=== PATIENT | male | born 1965 | race Caucasian/White ===

== ENCOUNTER 2016-06-22 10:12 | Emergency (ER) ==
[2016-06-22 10:23] VITALS: BP 108/62; TEMP 97.4; BMI 33.6
--- NOTE | 2016-06-22 10:35 | ED.PDOC ---
General ED Provider: Dr. KRISTEN RAGSDALE JR Chief Complaint: Shortness of Air Stated Complaint: SOA. Cofusion. Weakness. Fell x 3 last noc per . Pain both knees. Hx smoking 1 pack cigarettes dly x 30 yrs. [ End ] 97.4 110 28 99% 108/62 9/10 Time Seen by Physician: 10:35 Information Source: Patient, Family Exam Limitations: No limitations Primary Care Provider: GRACIELA NIXON Nursing and Triage Documentation Reviewed and Agree: No Review of Systems - Review Of Systems Constitutional: Reports: Malaise, Weakness Eyes: Reports: No symptoms Ears, Nose, Mouth, Throat: Reports: No symptoms Respiratory: Reports: Short of air Cardiac: Reports: Lightheadedness GI: Reports: Abdomen distended : Reports: Incontinence Musculoskeletal: Reports: No symptoms Skin: Reports: No symptoms Neurological: Reports: Anxiety, Depressed, Cognitive dysfunction, Weakness Endocrine: Reports: No symptoms Hematologic/Lymphatic: Reports: No symptoms All Other Systems: Other Past Medical History - Past Medical History Endocrine: Reports: Dyslipidemia Cardiovascular: Reports: Hypertension Respiratory: Reports: None Hematological: Reports: None Gastrointestinal: Reports: None Genitourinary: Reports: None Neuro/Psych: Reports: Anxiety, Depression Musculoskeletal: Reports: None Cancer: Reports: None, Other (note adrenal mass) - Surgical History General Surgical History: Reports: Orthopedic ( Internal fixation left tib/fib ) , Other (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)no known abdominal hardware) - Family History Family History: Reports: Unknown - Social History Smoking Status: Current every day smoker, Heavy tobacco smoker Hx Substance Use: No Alcohol Screening: Heavy (12 pack of beer a day (was unwell yesterday only able to drink 4 cans)) Physical Exam - Physical Exam Appearance: Ill-appearing, Obese Ill-appearing: Moderate Pain Distress: Mild Eyes: BINTA, EOMI, Conjunctiva inflammed (scant left discharge does not appear infected) ENT: Ears normal (superficial abrasions), Nose normal, Oropharynx normal Neck: Supple Respiratory: Airway patent, Breath sounds equal, Breath sounds diminished, Wheezes Cardiovascular: RRR, Pulses normal, No rub, No murmur GI/: Soft (markedly protuberant), Bowel sounds hypoactive Musculoskeletal: Normal strength, ROM intact, No edema, No calf tenderness Skin: Warm, Dry, Normal color Neurological: Motor intact, Reflexes intact, Cranial nerves intact (as testable) , Oriented, Alert to verbal Interpretation - EKG Interpretation Time of EKG #1: 10:45 Rate: Normal Rhythm: Sinus Ectopy: None [place]: [place] ST Segment: Normal Physician Notification - Case Discussed Physician Notified: lul [email or web address], dutch(no beds) Klever)- hospitalist in a code Time of Notification: 12:40 (dr SANDOVAL ACCEPTS AT 1345) Critical Care Note - Critical Care Note Total Time (mins): 30 Course - Course Hematology/Chemistry: 06/22/16 10:55 06/22/16 10:55 Orders, Labs, Meds: Lab Review 06/22/16 10:55 WBC 20.98 H RBC 4.62 L Hgb 15.2 Hct 38.5 L MCV 83.3 MCH 32.9 H MCHC 39.5 H RDW Coeff of Robert 11.9 Plt Count 107 L Neutrophils % (Manual) 66.0 Band Neutrophils % 28.0 H Lymphocytes % (Manual) 2.0 L Monocytes % (Manual) 4.0 PT 12.6 H INR 1.22 APTT 29.9 D-Dimer 2.13 Puncture Site R rad O2 Saturation 98.0 ABG pH 7.464 H ABG pCO2 18.7 L ABG pO2 93.0 ABG HCO3 13.4 L ABG Total CO2 14 L ABG Base Excess -10 L Alexi Test + FiO2 % 21.0 Sodium 104 L* Potassium 3.2 L Chloride 73 L* Carbon Dioxide 14 L Anion Gap 20.2 BUN 7 Creatinine 1.21 H Estimated GFR (MDRD) 63.00 BUN/Creatinine Ratio 5.78 Glucose 136 H Lactic Acid 62.2 H Calcium 7.8 L Total Bilirubin 9.67 H AST 587 H ALT 319 H Alkaline Phosphatase 326 H Ammonia 81 H Total Creatine Kinase 1323 CK-MB (CK-2) 28.2 H* CK-MB (CK-2) % 2.82086 Troponin I 0.0300 B-Natriuretic Peptide 182 H Total Protein 5.8 L Albumin 2.8 L Globulin 3.0 Albumin/Globulin Ratio 0.93 Amylase 240 H Lipase 1060 H* Procalcitonin 2.35 Orders Category Date Time Status ABG DRAW REQUEST Stat CARDIO 06/22/16 10:50 Completed EKG-(ED ONLY) Stat CARDIO 06/22/16 10:36 Completed ACCUCHECK (ED) [ED ACCUCHECK ASSESSMENT] .ONCE EMERGENCY 06/22/16 10:58 Active ED UPPER STITCHER APPLIED .ONCE EMERGENCY 06/22/16 10:36 Active ED IV/MEDIPORT/POWERPORT .ONCE EMERGENCY 06/22/16 10:36 Active O2 [ED APPLY O2] .ONCE EMERGENCY 06/22/16 10:53 Active ABG Stat LAB 06/22/16 10:55 Completed AMMONIA Stat LAB 06/22/16 10:55 Completed AMYLASE Stat LAB 06/22/16 10:55 Completed B-TYPE NATRIURETIC PEPTIDE Stat LAB 06/22/16 10:55 Completed BLOOD CULTURE Stat LAB 06/22/16 10:55 Received CBC W/ AUTO DIFF Stat LAB 06/22/16 10:55 Completed COMPREHENSIVE METABOLIC PANEL Stat LAB 06/22/16 10:55 Completed CREATINE KINASE Stat LAB 06/22/16 10:55 Completed D-DIMER Stat LAB 06/22/16 10:55 Completed LACTIC ACID Stat LAB 06/22/16 10:55 Completed LIPASE Stat LAB 06/22/16 10:55 Completed MANUAL DIFFERENTIAL Stat LAB 06/22/16 10:55 Completed PARTIAL THROMBOPLASTIN TIME Stat LAB 06/22/16 10:55 Completed PROCALCITONIN Stat LAB 06/22/16 10:55 Completed PT WITH INR Stat LAB 06/22/16 10:55 Completed TROPONIN I Stat LAB 06/22/16 10:55 Completed 0.9 % Sodium Chloride [Saline Flush] MEDS 06/22/16 10:36 Active 1 syr IVF PRN PRN Lactulose MEDS 06/22/16 12:43 Discontinued 40 gm PO ONCE STA Sodium Chloride 0.9% [Sodium Chloride] 1,000 ml MEDS 06/22/16 10:36 Active IV 100 mls/hr CT ABDOMEN/PELVIS WO CONTRAST Stat RADS 06/22/16 10:[address] CHEST W/O CONTRAST Stat RADS 06/22/16 10:[address] HEAD W/O CONTRAST Stat RADS 06/22/16 10:46 Completed Medications Generic Name Dose Route Start Last Admin Trade Name Freq PRN Reason Stop Dose Admin Sodium Chloride 1,000 mls @ 100 mls/hr 06/22/16 10:36 06/22/16 11:54 Sodium Chloride IV 06/22/16 20:35 100 mls/hr .Q10H STA Administration Sodium Chloride 1 syr 06/22/16 10:36 Saline Flush IVF PRN PRN To flush IV Discontinued Medications Generic Name Dose Route Start Last Admin Trade Name Anurag PRN Reason Stop Dose Admin Lactulose 40 gm 06/22/16 12:43 06/22/16 13:06 Lactulose PO 06/22/16 12:44 40 gm ONCE STA Administration Vital Signs: Temp Pulse Resp BP Pulse Ox 06/22/16 10:13 97.4 F L 110 H 28 H 108/62 99 Departure - Departure Time of Disposition: 13:04 Disposition: TSF SHORT-TRM HOSP Discharge Problem: Hepatic failure due to alcoholism, Pancreatitis, alcoholic, acute, Hyponatremia Condition: Serious Pt referred to PMD for follow-up: No Allergies/Adverse Reactions: Allergies No Known Allergies Allergy (Unverified 06/22/16 10:24) Home Medications: Ambulatory Orders Budesonide/Formoterol Fumarate [Symbicort 160-4.5 Mcg Inhaler] 1 puff IH DIRECTED PRN 06/22/16 Citalopram Hydrobromide [Citalopram HBr] 20 mg PO BEDTIME 06/22/16 Lisinopril [Zestril] 40 mg PO BEDTIME 06/22/16 Lovastatin [Mevacor] 20 mg PO BEDTIME 06/22/16 Olanzapine [Zyprexa] 10 mg PO BEDTIME 06/22/16
[2016-06-22] MEDS ORDERED: SODIUM CHLORIDE 1,000 ML IV STA (10:36)
[2016-06-22 10:56] LABS: ABG BASE EXCESS -10 (-2.0-2.0); ABG HCO3 13.4 (22.0-26.0); ABG PCO2 18.7 mmHg (35-45); ABG PH 7.464 (7.35-7.45); ABG TCO2 14 (22.0-28.0)
[2016-06-22 11:14] LABS: HEMATOCRIT 38.5 % (42.0-52.0); HEMOGLOBIN 15.2 g/dl (14.0-18.0); MEAN CORPUSCULAR HEMOGLOBIN 32.9 pg (27.0-31.0); MEAN CORPUSCULAR HGB CONC 39.5 (31.8-35.4); MEAN CORPUSCULAR VOLUME 83.3 fl (80.0-94.0); PLATELET COUNT 107 10^3/uL (140-440); RED BLOOD COUNT 4.62 10^6/ul (4.70-6.10); WHITE BLOOD COUNT 20.98 K/ul (4.2-10.2)
[2016-06-22 11:31] LABS: ANISOCYTOSIS NOT PRESENT (NOT PRESENT)
[2016-06-22 11:39] LABS: PARTIAL THROMBOPLASTIN TIME 29.9 SEC (23.9-40.0); PROTHROMBIN TIME 12.6 SEC (9.3-11.0)
--- NOTE | 2016-06-22 11:58 | CT ---
EXAM: CT Head HISTORY: Confusion, three falls, incontinence COMPARISON: 09/22/2009 TECHNIQUE: CT head performed without contrast FINDINGS: There is no mass effect, midline shift, or intracranial hemmorhage. Gallardo white different iation is preserved. There is no extra-axial collection. The ventricles, sulci, and basal cisterns are patent and symmetric. There is chronic ischemic disease of the white matter and cerebral volum e loss. There is no depressed calvarial fracture. The mastoid air cells are clear. The visualized paranasal sinuses are clear. There are intracranial atherosclerotic calcifications. IMPRESSION: 1. No acute intracranial abnormality. 2. Chronic ischemic disease of the white matter and cerebral volume loss.
--- NOTE | 2016-06-22 12:01 | CT ---
EXAM: CT abdomen pelvis without contrast HISTORY: Abdominal swelling, confusion and incontinence COMPARISON: Same day CT head and chest with CT abdomen 09/22/2009 TECHNIQUE: Serial axial images of the abdomen pelvis were performed from the lung bases through the inferior pelvis without contrast. These were viewed in multiple planes. FINDINGS: The lungs are clear. Evaluation is very limited due to patient motion and artifact from metallic hardware in the left abd omen. Evaluation is limited due to lack of contrast. There is diffuse low attenuation throughout t he liver consistent with hepatic steatosis. The gallbladder demonstrates mild increased density mat erial with no definitive pericholecystic fluid. The right adrenal gland and right kidney are normal on this limited evaluation. Spleen is unremarkable. There is stranding and fluid involving the mi dabdomen mesentery and extending into the retroperitoneum bilaterally, most pronounced on the left. This hazy ground-glass stranding is surrounding the pancreas. There are surgical clips in the left upper abdomen but are limiting this examination. The stomach is unremarkable and nondistended with minimal adjacent ground-glass in the mesentery. S mall bowel in the abdomen pelvis is nonobstructive. There is no layering free fluid in the pelvis. There is haziness in the mid mesentery. There is no definitive evidence of obstruction. Urinary b ladder is distended. Prostate is unremarkable. The osseous structures are unremarkable. IMPRESSION: 1. Nonspecific stranding in the abdominal mesentery and within the retroperitoneum surrounding the left kidney on this evaluation limited due to significant artifact from the adjacent hardware and mo tion. Findings may represent pancreatitis and correlation with pancreatic enzymes is recommended. T his fluid however is nonspecific and may represent an etiology from the adjacent bowel or left kidne y as these are poorly visualized due to metallic artifact. 2. Diffuse hepatic steatosis.
--- NOTE | 2016-06-22 12:02 | CT ---
Examination: Helical noncontrasted CT examination of the chest. Comparison: 09/22/2009. Reason for study: Short of air, confused, abdominal distension. FINDINGS: Evaluation is somewhat limited by lack of intravenous contrast administration. There are subtle areas of ground-glass seen within the right upper and right middle lobe best seen on axial i mages . 4 mm ground-glass nodule is seen in the left upper lobe on axial image number 24. No pneumothorax, pleural effusion, or focal consolidation. The heart is normal in size. There is a therosclerotic disease of the aorta and coronary vasculature. Please see the CT examination of the abdomen pelvis performed on the same day for imaging findings b elow the level of the diaphragm. Postsurgical changes are seen in the left upper quadrant with infl ammatory change. The liver is lower in density than the spleen. No osteoblastic or osteolytic lesio ns. Impression: 1. Subtle ground-glass opacities in the right upper and right middle lobes likely inflammatory or e carlin infectious etiology. 2. 4 mm ground-glass nodule in the left upper lobe. 3. Please see the CT examination of the abdomen pelvis performed on the same day for evaluation of the abdomen and pelvis.
[2016-06-22 12:11] LABS: ALBUMIN 2.8 g/dL (3.4-5.0); ALBUMIN/GLOBULIN RATIO 0.93; ANION GAP 20.2; BILIRUBIN,TOTAL 9.67 mg/dL (0.00-1.20); BUN/CREATININE RATIO 5.78; CALCIUM 7.8 mg/dL (8.2-10.2); CREATININE 1.21 mg/dL (0.60-1.10); POTASSIUM 3.2 mmol/L (3.5-5.1); TOTAL PROTEIN 5.8 g/dL (6.4-8.2); TROPONIN I 0.03 ng/ml (0.0000-0.4000)
[2016-06-22 12:14] LABS: CREATINE KINASE MB 28.2 ng/ml (0.0-3.6)
[2016-06-22] MEDS ORDERED: LACTULOSE PO STA (12:43)
[2016-06-22 13:14] LABS: AMYLASE 240 U/L (25-115)
[2016-06-22 13:16] LABS: LIPASE 1060 U/L (8-78)
[2016-06-22] MEDS ORDERED: ROCEPHIN 1 GM in SODIUM CHLORIDE 100 ML IV STA (14:04)
[2016-06-22 14:06] LABS: OCCULT BLOOD INTERNAL QC 1 INTERNAL QC VALID; OCCULT BLOOD SAMPLE 1 POSITIVE (NEGATIVE)
[2016-06-22] MEDS ORDERED: ROCEPHIN ONE (14:06)
[2016-06-22 14:14] LABS: H. PYLORI STOOL ANTIGEN NEGATIVE; H.PYLORI STOOL AG INTERNAL QC INTERNAL QC VALID
[2016-06-22 15:21] LABS: OCCULT BLOOD INTERNAL QC 2 INTERNAL QC VALID; OCCULT BLOOD INTERNAL QC 3 INTERNAL QC VALID; OCCULT BLOOD SAMPLE 2 NO SPECIMEN RECEIVED (NEGATIVE); OCCULT BLOOD SAMPLE 3 NO SPECIMEN RECEIVED (NEGATIVE)
== END 2016-06-22 14:30 | disposition short-term general hospital (02) ==
LOC: ED 10:12
DX: K70.40 Alcoholic hepatic failure without coma (principal); F10.10 Alcohol abuse, uncomplicated; K85.20 Alcohol induced acute pancreatitis without necrosis or infection; E87.1 Hypo-osmolality and hyponatremia; R29.6 Repeated falls; M25.562 Pain in left knee; M25.561 Pain in right knee; R53.1 Weakness; R06.02 Shortness of breath; R41.0 Disorientation, unspecified; R42 Dizziness and giddiness; E78.5 Hyperlipidemia, unspecified; I10 Essential (primary) hypertension; F17.210 Nicotine dependence, cigarettes, uncomplicated; Z79.899 Other long term (current) drug therapy; W19.XXXA Unspecified fall, initial encounter
CPT/HCPCS: 36415; 80053; 82140; 82150; 82272; 82550; 82553; 82803; 82962; 83605; 83690; 83880; 84145; 84484; 85007; 85025; 85379; 85610; 85730; 87015; 87040; 87045; 87338; 87899; 93005; 93010; 96361; 96365; 99284; 99285

== ENCOUNTER 2016-06-22 14:29 | Outpatient (CLI) ==
[2016-06-22 10:23] VITALS: BMI 33.6
== END 2016-06-22 14:30 | disposition home or self-care (01) ==
LOC: AMBL 14:29
PROVIDERS: ATTEND Emergency Medicine
DX: R41.82 Altered mental status, unspecified (principal); K72.90 Hepatic failure, unspecified without coma; R29.6 Repeated falls; R00.0 Tachycardia, unspecified; R06.02 Shortness of breath

== ENCOUNTER 2016-07-31 12:48 | Emergency (ER) ==
[2016-07-31 13:11] VITALS: BP 100/68; TEMP 99.2; BMI 31.8
--- NOTE | 2016-07-31 15:10 | US ---
EXAM: ULTRASOUND LOWER EXTREMITY VENOUS DOPPLER EXAM HISTORY: Leg pain. FINDINGS: Right lower extremity venous Doppler exam. Real time guthrie-scale, Doppler spectral analysi s and color-flow Doppler imaging performed. The veins targeted for evaluation include the common fe moral, greater saphenous, profundus, femoral, popliteal, peroneal, anterior tibial and posterior tib ial. The evaluated veins demonstrated normal spontaneous flow and compression without evidence of thrombosis. No valvular reflux. IMPRESSION: No venous thrombosis identified within the areas evaluated.
--- NOTE | 2016-07-31 15:10 | DI ---
Examination: Three radiographic images of the right ankle. Comparison: Right foot radiographs performed on the same day. Reason for study: Pain. FINDINGS: No acute fracture or dislocation. The talar dome is intact. There is no widening of the medial clear space. No unexpected osseous soft tissue densities. Impression: No acute fracture or dislocation in the right ankle.
--- NOTE | 2016-07-31 15:13 | DI ---
Examination: Three images of the right foot. Comparison: Right ankle radiographs performed on the same day. Reason for study: Pain. FINDINGS: No acute fracture or dislocation. The joint spaces are well maintained. There is no obv ious malalignment. There is a fragmented os peroneum along the a plantar aspect of the cuboid. Impression: 1. No acute fracture or dislocation. 2. Fragmented os peritoneum. Recommend correlation with site of patient's pain to rule out painful os peroneum syndrome.
--- NOTE | 2016-07-31 15:52 | ED.PDOC ---
General ED Provider: Dr. NICHOLAS MARSHALL Chief Complaint: Non-specific Complaint Stated Complaint: right leg pain Time Seen by Physician: 13:00 Mode of Arrival: Walk-In Information Source: Patient Exam Limitations: No limitations Primary Care Provider: GRACIELA NIXON Nursing and Triage Documentation Reviewed and Agree: Yes Musculoskeletal Complaint Exam - Lower Extremity Complaint/Exam Location of Pain: Reports: Right, Leg Mechanism of Injury: Reports: No known trauma Onset/Duration: 1 week Symptoms Are: Still present Initial Severity: Mild Current Severity: Mild Character: Reports: Aching Alleviating: Reports: Rest, Position Aggravating: Reports: None Able to Bear Weight: Yes Associated Signs and Symptoms: Denies: Swelling, Redness, Bruising, Fever, Weakness, Numbness, Tingling Related History: Reports: Similar episode DVT Risk Factors: Reports: None Septic Arthritis Risk Factors: Reports: None Related Surgical History: Reports: None Differential Diagnoses: DVT, Strain, Sprain Review of Systems - Review Of Systems Constitutional: Reports: No symptoms Eyes: Reports: No symptoms Ears, Nose, Mouth, Throat: Reports: No symptoms Respiratory: Reports: No symptoms Cardiac: Reports: No symptoms GI: Reports: No symptoms : Reports: No symptoms Musculoskeletal: Reports: Joint pain Skin: Reports: No symptoms Neurological: Reports: No symptoms Endocrine: Reports: No symptoms Hematologic/Lymphatic: Reports: No symptoms All Other Systems: Reviewed and Negative Past Medical History - Past Medical History Endocrine: Reports: Dyslipidemia Cardiovascular: Reports: Hypertension Respiratory: Reports: None Hematological: Reports: None Gastrointestinal: Reports: None Genitourinary: Reports: None Neuro/Psych: Reports: Anxiety, Depression Musculoskeletal: Reports: None Cancer: Reports: None, Other (note adrenal mass) - Surgical History General Surgical History: Reports: Orthopedic ( Internal fixation left tib/fib ) , Other (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)no known abdominal hardware) - Family History Family History: Reports: Unknown - Social History Smoking Status: Current every day smoker, Light tobacco smoker Hx Substance Use: No Alcohol Screening: None Physical Exam - Physical Exam Appearance: Well-appearing, No pain distress, Well-nourished Eyes: BINTA, EOMI, Conjunctiva clear ENT: Ears normal, Nose normal, Oropharynx normal Respiratory: Airway patent, Breath sounds clear, Breath sounds equal, Respirations nonlabored Cardiovascular: RRR, Pulses normal, No rub, No murmur GI/: Soft, Nontender, No masses, Bowel sounds normal, No Organomegaly Musculoskeletal: Normal strength, ROM intact, No edema, No calf tenderness Skin: Warm, Dry, Normal color Neurological: Sensation intact, Motor intact, Reflexes intact, Cranial nerves intact, Alert, Oriented Psychiatric: Affect appropriate, Mood appropriate Critical Care Note - Critical Care Note Total Time (mins): 0 Course - Course Orders, Labs, Meds: Orders Category Date Time Status ANKLE, RIGHT MIN 3 VIEWS Stat RADS 07/31/16 14:34 Completed FOOT, RIGHT 3 VIEWS Stat RADS 07/31/16 14:34 Completed U/S VENOUS SCAN RT. LEG Stat RADS 07/31/16 14:35 Completed Vital Signs: Temp Pulse Resp BP Pulse Ox 07/31/16 12:50 99.2 F 98 H 20 100/68 96 Departure - Departure Time of Disposition: 15:51 Disposition: HOME SELF-CARE Discharge Problem: Leg pain, right Instructions: Leg Pain (ED), Arthralgia (ED) Condition: Good Pt referred to PMD for follow-up: No Additional Instructions: Please call your Family Physician as soon as possible to schedule a follow-up appointment. Allergies/Adverse Reactions: Allergies No Known Allergies Allergy (Verified 07/31/16 13:07) Home Medications: Ambulatory Orders Budesonide/Formoterol Fumarate [Symbicort 160-4.5 Mcg Inhaler] 1 puff IH DIRECTED PRN 06/22/16 Citalopram Hydrobromide [Citalopram HBr] 20 mg PO BEDTIME 06/22/16 Lisinopril [Zestril] 40 mg PO BEDTIME 06/22/16 Lovastatin [Mevacor] 20 mg PO BEDTIME 06/22/16 Olanzapine [Zyprexa] 10 mg PO BEDTIME 06/22/16
== END 2016-07-31 16:00 | disposition home or self-care (01) ==
LOC: ED 12:48
DX: M79.604 Pain in right leg (principal); M25.50 Pain in unspecified joint; F17.210 Nicotine dependence, cigarettes, uncomplicated; Z79.899 Other long term (current) drug therapy
CPT/HCPCS: 99283

== ENCOUNTER 2016-08-10 13:05 | Outpatient (CLI) ==
--- NOTE | 2016-08-10 13:51 | DI ---
EXAM: Acute abdominal series HISTORY: Constipation. COMPARISON: CT abdomen 07/23/2016 and 06/22/2016 FINDINGS: Surgical clips in the upper abdomen are present. There are air-fluid levels in the small bowel on the right decubitus view. There are air-fluid levels on the upright view of the abdomen. There is no pneumatosis. There is no portal venous gas or free air beneath the diaphragm. IMPRESSION: Multiple air-fluid levels in the abdomen and pelvis may represent small bowel obstructi on. Previous small bowel obstruction was identified on prior CT.
== END 2016-08-10 13:06 | disposition home or self-care (01) ==
LOC: RAD 13:05
PROVIDERS: ATTEND Physician Assistant
DX: K59.09 Other constipation (principal)

== ENCOUNTER 2017-12-25 14:17 | Emergency (ER) ==
[2017-12-25] MEDS ORDERED: DUONEB NEB STA ×4 (14:22→18:18)
[2017-12-25 14:23] VITALS: TEMP 98.6; BMI 25.0
--- NOTE | 2017-12-25 14:30 | ED.PDOC ---
General ED Provider: Dr. CYNTHIA WATSON Chief Complaint: Weakness Stated Complaint: Patient is brought to the Er with weakness that started yesterday got worse today. Denies any focal deficites only generalzed weakness. He was recently in the hospital. Time Seen by Physician: 14:25 Mode of Arrival: Ambulance Information Source: Patient, Family Exam Limitations: No limitations Primary Care Provider: GRACIELA NIXON Nursing and Triage Documentation Reviewed and Agree: Yes Does patient meet sepsis criteria?: No System Inflammatory Response Syndrome: Not Applicable Sepsis Protocol: For patient's 13 years and over: Temp is 96.8 and below OR 101 and greater Pulse >90 BPM Resp >20/minute Acutely Altered Mental Status Are patient's symptoms suggestive of a new infection, such as: -Pneumonia -Skin, Soft Tissue -Endocarditis -UTI -Bone, Joint Infection -Implantable Device -Acute Abdominal Infection -Wound Infection -Meningitis -Blood Stream Catheter Infection -Unknown Miscellaneous Complaint Exam - Complex/Multi-System Complaint/Exam Onset/Duration: 1 week Symptoms Are: Still present Initial Severity: Moderate Current Severity: Severe Location of Pain: Abdomen Associated Signs and Symptoms: Reports: Decreased responsiveness, Weakness, Short of air, Cough, Abdominal pain, Decreased oral intake Respiratory Distress: Moderate JVD Present: Yes Tachypnea Present: Yes Stridor Present: No Abdominal Findings: Present: Distention. Absent: Rebound tenderness, Pulsatile mass Glascow Coma Scale (see protocol): 15 Focal Weakness: Present: None Focal Sensory Loss: Present: None Gait: Unable Review of Systems - Review Of Systems Constitutional: Reports: Loss of appetite Ears, Nose, Mouth, Throat: Reports: No symptoms Respiratory: Reports: Cough, Wheezing (rhochi) Cardiac: Reports: No symptoms GI: Reports: Abdomen distended, Abdominal pain, Poor appetite : Reports: No symptoms Musculoskeletal: Reports: No symptoms Skin: Reports: No symptoms Neurological: Reports: Anxiety All Other Systems: Other (Limited due to Metal state) Past Medical History - Past Medical History Endocrine: Reports: Dyslipidemia Cardiovascular: Reports: Hypertension Respiratory: Reports: None Hematological: Reports: None Gastrointestinal: Reports: None Genitourinary: Reports: None Neuro/Psych: Reports: Anxiety, Depression Musculoskeletal: Reports: None Cancer: Reports: None, Other (note adrenal mass) - Surgical History General Surgical History: Reports: Orthopedic ( Internal fixation left tib/fib ) , Other (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)no known abdominal hardware) - Family History Family History: Reports: Unknown - Social History Smoking Status: Current every day smoker Hx Substance Use: No Alcohol Screening: Heavy - Immunizations Tetanus Shot up to Date: Yes Physical Exam - Physical Exam Appearance: Ill-appearing Eyes: BINTA, EOMI (Jaundiced ) ENT: Dry mucosa Neck: Supple Respiratory: Rhonchi (Bilatearal ) GI/: Soft, Tender (mild diffuse ), Hepatomegaly Skin: Warm, Dry Neurological: Motor intact, Alert to verbal, Alert to pain Psychiatric: Anxious Interpretation - Radiology Interpretation Radiology Interpretation By: Radiologist Radiology Results: Negative Exam Interpreted: CT Scan (Head ) Radiology Interpretation By: Radiologist Radiology Results: Positive (Possible small bowel obstruction. Ascities.) Exam Interpreted: CT Scan Physician Notification - Case Discussed Physician Notified: Dr Blue Time of Notification: 16:00 Physician Notified: Dr. Lazar Time of Notification: 17:42 (Accepted after Negative CT Head ) Critical Care Note - Critical Care Note Total Time (mins): 65 Course - Course Hematology/Chemistry: 12/25/17 15:33 12/25/17 15:33 Orders, Labs, Meds: Lab Review 12/25/17 12/25/17 12/25/17 15:33 15:33 15:33 WBC 7.11 RBC 4.20 L Hgb 13.0 L Hct 34.8 L MCV 82.9 MCH 31.0 MCHC 37.4 H RDW Coeff of Robert 16.0 H Plt Count 83 L Immature Gran % (Auto) 0.4 Neut % (Auto) 80.1 Lymph % (Auto) 15.0 [place] % (Auto) 3.7 Eos % (Auto) 0.1 Baso % (Auto) 0.7 Immature Gran # (Auto) 0.0 Neut # (Auto) 5.7 Lymph # (Auto) 1.1 [place] # (Auto) 0.3 L Eos # (Auto) 0.0 Baso # (Auto) 0.1 Puncture Site O2 Saturation ABG pH ABG pCO2 ABG pO2 ABG HCO3 ABG Total CO2 ABG Base Excess Alexi Test FiO2 % Sodium 123 L Potassium 3.5 Chloride 94 L Carbon Dioxide 18 L Anion Gap 14.5 BUN 13 Creatinine 0.77 Estimated GFR (MDRD) 105.00 BUN/Creatinine Ratio 16.88 Glucose 72 Lactic Acid Calcium 7.5 L Total Bilirubin 2.2 H AST 135 H ALT 135 H Alkaline Phosphatase 250 H Total Protein 4.2 L Albumin 1.2 L Globulin 3.0 Albumin/Globulin Ratio 0.40 Procalcitonin 1.52 12/25/17 12/25/17 15:35 15:35 WBC RBC Hgb Hct MCV MCH MCHC RDW Coeff of Robert Plt Count Immature Gran % (Auto) Neut % (Auto) Lymph % (Auto) [place] % (Auto) Eos % (Auto) Baso % (Auto) Immature Gran # (Auto) Neut # (Auto) Lymph # (Auto) [place] # (Auto) Eos # (Auto) Baso # (Auto) Puncture Site Lradial O2 Saturation 95.0 ABG pH 7.524 H* ABG pCO2 21.8 L ABG pO2 64.0 L ABG HCO3 17.9 L ABG Total CO2 19 L ABG Base Excess -5 L Alexi Test + FiO2 % 21.0 Sodium Potassium Chloride Carbon Dioxide Anion Gap BUN Creatinine Estimated GFR (MDRD) BUN/Creatinine Ratio Glucose Lactic Acid 29.8 H Calcium Total Bilirubin AST ALT Alkaline Phosphatase Total Protein Albumin Globulin Albumin/Globulin Ratio Procalcitonin Orders Category Date Time Status ABG DRAW REQUEST Routine CARDIO 12/25/17 14:24 Completed EKG-(ED ONLY) Stat CARDIO 12/25/17 16:00 Completed NEBULIZER TREATMENT Stat CARDIO 12/25/17 14:24 Completed NEBULIZER TREATMENT Stat CARDIO 12/25/17 18:09 Completed ED APPLY O2 .ONCE EMERGENCY 12/25/17 14:18 Active ED CPR INSTRUCTOR APPLIED .ONCE EMERGENCY 12/25/17 14:18 Active ED VITAL SIGNS Q1HR EMERGENCY 12/25/17 14:18 Active ABG Stat LAB 12/25/17 15:35 Completed BLOOD CULTURE (ED ONLY) Stat LAB 12/25/17 15:33 Received CBC W/ AUTO DIFF Stat LAB 12/25/17 15:33 Completed COMPREHENSIVE METABOLIC PANEL Stat LAB 12/25/17 15:33 Completed LACTIC ACID Stat LAB 12/25/17 15:35 Completed PROCALCITONIN Stat LAB 12/25/17 15:33 Completed Ipratropium/Albuterol Neb [Duoneb] MEDS 12/25/17 14:22 Discontinued 1 vial NEB ONCE STA Ipratropium/Albuterol Neb [Duoneb] MEDS 12/25/17 16:01 Discontinued 1 vial NEB ONCE STA Ipratropium/Albuterol Neb [Duoneb] MEDS 12/25/17 18:09 Discontinued 1 vial NEB ONCE STA Ipratropium/Albuterol Neb [Duoneb] MEDS 12/25/17 18:18 Discontinued 1 vial NEB ONCE STA Piperacillin Sodium/Tazobactam [Zosyn 3.375 gm] 3.375 MEDS 12/25/17 15:53 Discontinued gm 0.9 % Sodium Chloride [Sodium Chloride] 50 ml IV ONCE Sodium Chloride 0.9% [Sodium Chloride] 1,000 ml MEDS 12/25/17 18:05 Active IV 75 mls/hr CHEST, 1V AP ONLY Stat RADS 12/25/17 14:[address] ABDOMEN/PELVIS WO CONTRAST Stat RADS 12/25/17 17:[address] HEAD W/O CONTRAST Stat RADS 12/25/17 17:34 Completed Medications Generic Name Dose Route Start Last Admin Trade Name Freq PRN Reason Stop Dose Admin Sodium Chloride 1,000 mls @ 75 mls/hr 12/25/17 18:05 12/25/17 18:10 Sodium Chloride IV 12/26/17 07:24 75 mls/hr .[id number] STA Administration Discontinued Medications Generic Name Dose Route Start Last Admin Trade Name Freq PRN Reason Stop Dose Admin Albuterol/Ipratropium 1 vial 12/25/17 14:22 Duoneb NEB 12/25/17 14:23 ONCE STA Albuterol/Ipratropium 1 vial 12/25/17 16:01 12/25/17 16:02 Duoneb NEB 12/25/17 16:02 1 vial ONCE STA Administration Albuterol/Ipratropium 1 vial 12/25/17 18:09 Duoneb NEB 12/25/17 18:10 ONCE STA Albuterol/Ipratropium 1 vial 12/25/17 18:18 12/25/17 18:19 Duoneb NEB 12/25/17 18:19 1 vial ONCE STA Administration Piperacillin Sod/Tazobactam 50 mls @ 50 mls/hr 12/25/17 15:53 12/25/17 16:14 Sod 3.375 gm/ Sodium Chloride IV 12/25/17 16:52 50 mls/hr ONCE STA Administration Vital Signs: Temp Pulse Resp BP Pulse Ox 12/25/17 19:24 72 16 114/62 96 12/25/17 14:17 98.6 F 98 H 24 97/72 98 Departure - Departure Time of Disposition: 19:47 Disposition: TSF SHORT-TRM HOSP Discharge Problem: Hyponatremia Pneumonia Qualifiers: Pneumonia type: aspiration pneumonia Aspiration pneumonia type: unspecified Laterality: right Lung location: lower lobe of lung Qualified Code(s): J69.0 - Pneumonitis due to inhalation of food and vomit Liver failure Qualifiers: Liver failure chronicity: chronic Hepatic coma status: without hepatic coma Qualified Code(s): K72.10 - Chronic hepatic failure without coma Condition: Stable Pt referred to PMD for follow-up: No IPMP verified?: No Allergies/Adverse Reactions: Allergies No Known Allergies Allergy (Verified 07/31/16 13:07) Home Medications: Ambulatory Orders Olanzapine [Zyprexa] 10 mg PO BEDTIME 06/22/16 Sotalol HCl [Betapace] 80 mg PO BID 12/25/17 Pt. Stabilized Within Hospital's Capabilities/Transferred To: [facility]. Transfer Form Completed: Yes Disposition Discussed With: Patient, Family
--- NOTE | 2017-12-25 15:12 | DI ---
EXAM: Chest one view HISTORY: Cough COMPARISON: 07/24/2016 TECHNIQUE: Single view of the chest was performed FINDINGS: Right basilar consolidation. There is no pleural effusion or pneumothorax. The heart is normal in size. The mediastinal contour is normal. There are no acute abnormalities of the bones. C hronic fracture of the right mid clavicle. Surgical clips in the epigastric region. IMPRESSION: Right basilar consolidation, most consistent with pneumonia. Recommend radiographic fol low-up to resolution. Report faxed
--- NOTE | 2017-12-25 15:46 | ED.PDOC ---
Procedures - IV/Art Line Insertion Location: rt wrist Invasive Line/IV Catheter Gauge: 22 (blood draw for labs also) Number of Attempts: 1 Blood Return Positive: Yes Invasive Line/IV Flushes Without Difficulty: Yes Conscious Sedation - Pre-op Assessment Weight: 155 lb Surgical History: Dialysis - Medical History Past Medical History: Cancer, Seizures, A-FIb, COPD, Renal Failure, Depression, Liver, Other Other History: ETOH addiction - Physical Exam Heart Rate/Rhythm: Irregular Rhythm
--- NOTE | 2017-12-25 15:46 | ED.PDOC ---
Procedures - IV/Art Line Insertion Type of Line: Arterial Line Invasive Line/IV Catheter Gauge: 22 (art stick for abgs) Number of Attempts: 1 Blood Return Positive: Yes Invasive Line/IV Flushes Without Difficulty: Yes Conscious Sedation - Pre-op Assessment Weight: 155 lb Surgical History: Dialysis - Medical History Past Medical History: Cancer, Seizures, A-FIb, COPD, Renal Failure, Depression, Liver, Other Other History: ETOH addiction - Physical Exam Heart Rate/Rhythm: Irregular Rhythm
[2017-12-25] MEDS ORDERED: ZOSYN 3.375 GM 3.375 GM in SODIUM CHLORIDE 50 ML IV STA (15:53)
[2017-12-25] MEDS ORDERED: SODIUM CHLORIDE 1,000 ML IV STA (18:05)
--- NOTE | 2017-12-25 18:23 | CT ---
EXAM: CT head without contrast HISTORY: Altered mental status COMPARISON: CT head from 06/22/2016 TECHNIQUE: Helical axial CT of the head was performed without contrast. Coronal and sagittal reconstr uctions were performed. FINDINGS: There is no acute intracranial abnormality. There is no hemorrhage, mass, midline shift, abnormal ex tra-axial fluid collection, hydrocephalus or evolving ischemia. The guthrie-white matter junction is wel l maintained. There is moderate generalized atrophy. There is some mild chronic small vessel ischemi a in the white matter. Brain parenchyma, ventricles and sulci are otherwise normal. There are no acute calvarial lesions. Visualized orbits and globes are unremarkable. The mastoid ai r cells demonstrate no significant soft tissue opacification. The visualized paranasal sinuses show n o air-fluid levels. IMPRESSION: 1. No acute intracranial abnormality. 2. Stable senescent changes as described.
--- NOTE | 2017-12-25 18:35 | CT ---
EXAM: CT abdomen pelvis contrast TECHNIQUE: Helical axial CT of the abdomen and pelvis was performed contrast with coronal and sagit aly reconstructions. COMPARISON: CT abdomen pelvis from 07/23/2016. HISTORY: Abdominal pain FINDINGS: There are several dilated loops of small bowel seen in the left lower abdomen measuring up to 4.2 cm in diameter. The individual loops of bowel are somewhat obscured by moderate ascites. In addition th ere is quite a bit of perihepatic ascites. There is extreme fatty infiltration of the liver. There are no focal liver abnormalities identified. The spleen is somewhat small. The pancreas and adrenal glands are unremarkable. There is a small ef fusion in the left lung base with fairly extensive bibasilar areas of consolidation and/or edema more so in the right base. There are multiple surgical clips seen in the left upper quadrant. There are no suspicious renal masses or large cysts and no hydronephrosis. There are no kidney stones . Both ureters demonstrate normal course and caliber. There is no filling defect in the urinary blad nato. The appendix is not definitely seen. There are no inflamed colonic diverticula. There are no abdomin al wall hernias. There is advanced calcific atherosclerosis of the aorta. There are no acute osseous abnormalities. There is subcutaneous edema noted consistent with third spacing of fluid. IMPRESSION: 1. Extensive new ascites as described above with extreme fatty infiltration of the liver. Correlate for liver failure or cirrhosis. 2. Dilated loops of small bowel which may represent focal ileus or recurrent small bowel obstruction . No definite transition point is identified as the loops are quite obscured by the new ascites. 3. Bibasilar infiltrates versus edema will right greater than left with small left effusion. Report faxed
[2017-12-25 19:25] VITALS: BP 114/62
== END 2017-12-25 19:35 | disposition short-term general hospital (02) ==
LOC: ED 14:17
DX: E87.1 Hypo-osmolality and hyponatremia (principal); J69.0 Pneumonitis due to inhalation of food and vomit; K72.10 Chronic hepatic failure without coma; R53.1 Weakness; R06.02 Shortness of breath; F17.210 Nicotine dependence, cigarettes, uncomplicated
CPT/HCPCS: 36415; 80053; 82803; 83605; 84145; 85025; 87040; 93005; 93010; 94640; 96361; 96365; 99285

== ENCOUNTER 2017-12-25 19:59 | Outpatient (CLI) ==
[2017-12-25 14:23] VITALS: BMI 25.0
== END 2017-12-25 20:57 | disposition short-term general hospital (02) ==
LOC: AMBL 19:59
PROVIDERS: ATTEND Internal Medicine Geriatric Medicine
DX: J18.9 Pneumonia, unspecified organism (principal); A41.9 Sepsis, unspecified organism; R18.8 Other ascites; N19 Unspecified kidney failure; R60.9 Edema, unspecified; R53.1 Weakness; R23.0 Cyanosis; R19.7 Diarrhea, unspecified